=== PATIENT | female | born 1965 | race Caucasian/White ===

== ENCOUNTER 2023-05-10 09:39 | Day surgery (SDC) | payer BC ==
[~2023-05-10 09:39] MED LIST: Midazolam 1 MG/ML 2 ML SDV ONE; Propofol 200 MG/20 ML SDV ONE
[2023-05-10] MEDS ORDERED: Sodium Chloride 0.9% 10 ML Syringe FLUSH PRN (09:45)
[2023-05-10] MEDS ORDERED: Lactated Ringers 1,000 ML IV SCH (09:45)
[2023-05-10 11:53] VITALS: BP 146/85; PULSE 55
== END 2023-05-10 12:35 | disposition home or self-care (01) ==
LOC: LL.SDS 09:39
PROVIDERS: ATTEND Surgery
DX: R10.32 Left lower quadrant pain (principal); Z79.899 Other long term (current) drug therapy
CPT/HCPCS: J2250; J2704; J7120